=== PATIENT | female | born 1970 | race African-American/Black ===

== ENCOUNTER 2017-03-11 11:00 | Emergency (ER) | payer MEDICARE, MEDICAID ==
[~2017-03-11] VITALS: Ht 165.1 cm; Wt 60.0 kg
[~2017-03-11 11:00] MED LIST: AMLO5TAB88 PO; ASCO500C15 PO; DIAZ10TA; LISI10TA5 PO; PREG75CA; SIMV10TA6 PO
[2017-03-11 14:10] VITALS: BP 185/98
[2017-03-11] MEDS ORDERED: KETOROLAC 60MG/2ML VIAL IM ONE (15:45)
[2017-03-11] MEDS ORDERED: TRAMADOL 50MG TABLET PO ONE (15:45)
== END 2017-03-11 17:50 | disposition home or self-care (01) ==
LOC: ER 11:23
DX: M54.9 Dorsalgia, unspecified (principal); M25.511 Pain in right shoulder; M25.561 Pain in right knee; I10 Essential (primary) hypertension
CPT/HCPCS: 73030; 73560; 96372; 99284; J1885; A4565

== ENCOUNTER 2017-05-24 03:28 | Emergency (ER) | payer MEDICARE, MEDICAID ==
[~2017-05-24] VITALS: Ht 167.6 cm; Wt 59.0 kg
[2017-05-24] MEDS ORDERED: MORPHINE SULFATE 4 MG/ML CPJ (NOT FOR IM USE) IV ONE (04:00)
[2017-05-24] MEDS ORDERED: DIATR MEGLU/DIATRIZOATE SOLN 30ML ONE (04:09)
[2017-05-24 04:20] LABS: HEMATOCRIT. 39.9 % (36.0-48.0); HEMOGLOBIN. 13.4 g/dL (12.0-16.0); MEAN CORPUSCULAR HEMOGLOBIN 29.6 pg (28.0-32.0); MEAN CORPUSCULAR VOLUME 87.7 fL (81.0-99.0); MEAN PLATELET VOLUME 7.8 fl (7.4-10.4); PLATELET 240 x1000/uL (130-400); RED BLOOD CELL COUNT 4.55 mill/uL (4.2-5.4); RED CELL DISTRIBUTION WIDTH 13.9 % (11.6-14.6)
[2017-05-24 04:24] LABS: INR 1.1; PROTHROMBIN TIME 11.2 sec (9.4-11.6)
[2017-05-24 04:54] LABS: CARBON DIOXIDE 29 mEq/L (21-32); CHLORIDE 105 mEq/L (98-107); TROPONIN I < 0.02 ng/mL (0.00-0.04)
[2017-05-24 05:01] LABS: CLARITY URINE CLEAR (CLEAR); COLOR URINE YELLOW (YELLOW); KETONES URINE NEGATIVE (NEGATIVE); LEUKOCYTE ESTERASE URINE NEGATIVE (NEGATIVE); NITRITE URINE NEGATIVE (NEGATIVE); OCCULT BLOOD URINE 2+ (NEGATIVE); PROTEIN URINE NEGATIVE (NEGATIVE); SPECIFIC GRAVITY URINE 1.018 (1.005-1.030); UROBILINOGEN URINE 0.2 E.U./dL (0.2-1.0)
[2017-05-24] MEDS ORDERED: IOHEXOL-300 100 ML BOTTLE ONE (06:40)
[2017-05-24 09:20] LABS: PLATELET ESTIMATE NORMAL
[2017-05-24 14:11] VITALS: BP 144/80
== END 2017-05-24 14:18 | disposition home or self-care (01) ==
LOC: ER 03:28
DX: A08.4 Viral intestinal infection, unspecified (principal); K58.9 Irritable bowel syndrome, unspecified; Z90.710 Acquired absence of both cervix and uterus
CPT/HCPCS: 36415; 74177; 76830; 76856; 80053; 81001; 83690; 84484; 85025; 85610; 93005; 96374; 99285; J2270; Q9967; Q9963

== ENCOUNTER 2019-04-11 23:55 | Emergency (ER) | payer MEDICARE, MEDICAID ==
[~2019-04-11] VITALS: Ht 167.6 cm; Wt 60.0 kg
[2019-04-12 00:50] LABS: CLARITY URINE TURBID (CLEAR); COLOR URINE ORANGE (YELLOW); KETONES URINE NEGATIVE (NEGATIVE); LEUKOCYTE ESTERASE URINE 3+ (NEGATIVE); NITRITE URINE NEGATIVE (NEGATIVE); OCCULT BLOOD URINE 3+ (NEGATIVE); PH URINE 5.5 (4.5-8.0); PROTEIN URINE 3+ (NEGATIVE); SPECIFIC GRAVITY URINE 1.021 (1.005-1.030)
[2019-04-12 01:31] LABS: CHLORIDE 100 mEq/L (98-107)
[2019-04-12 01:35] LABS: HEMATOCRIT 40.4 % (36.0-48.0); HEMOGLOBIN 14.1 g/dL (12.0-16.0); MEAN CORPUSCULAR HEMOGLOBIN 30.7 pg (28.0-32.0); MEAN CORPUSCULAR VOLUME 87.9 fL (81.0-99.0); PLATELET 174 x1000/uL (130-400); RED CELL DISTRIBUTION WIDTH 13.7 % (11.6-14.6)
[2019-04-12] MEDS ORDERED: PHENAZOPYRIDINE HCL 100MG TABLET PO SCH (03:00)
[2019-04-12] MEDS ORDERED: KETOROLAC 60MG/2ML VIAL IM SCH (03:00)
[2019-04-12] MEDS ORDERED: CEPHALEXIN 250MG CAPSULE PO SCH (03:00)
[2019-04-12 03:19] VITALS: BP 129/91
[2019-04-12 15:34] LABS: UCG SCREEN NEGATIVE
== END 2019-04-12 03:28 | disposition home or self-care (01) ==
LOC: ER 23:55
DX: N39.0 Urinary tract infection, site not specified (principal); R31.0 Gross hematuria; I10 Essential (primary) hypertension
CPT/HCPCS: 36415; 76770; 80053; 81003; 81025; 85027; 87077; 87086; 87186; 96372; 99284; J1885

== ENCOUNTER → 2019-07-20 | Outpatient (CLI) | payer MEDICARE, MEDICAID ==
[~2019-07-20] MED LIST changes: +LIDOCAINE HCL 1% 20ML VIAL (Pyxis) INJ ONE; -SIMV10TA6 PO; +SIMV10TA97 PO; +SODIUM BICARBONATE 4% (2.4MEQ) 5ML VIAL IV ONE
== END | disposition home or self-care (01) ==
LOC: RAD 07:44
PROVIDERS: ATTEND Family Medicine Adult Medicine
DX: R59.0 Localized enlarged lymph nodes (principal); Z79.899 Other long term (current) drug therapy; Z72.89 Other problems related to lifestyle
CPT/HCPCS: 38505; 76942; 88305; J3490

== ENCOUNTER 2021-04-20 21:03 | Emergency (ER) | payer MEDICARE, MEDICAID ==
[~2021-04-20] VITALS: Ht 170.2 cm; Wt 71.0 kg
[~2021-04-20 21:03] MED LIST changes: -LIDOCAINE HCL 1% 20ML VIAL (Pyxis) INJ ONE; +LISI10TA26 PO; -LISI10TA5 PO; -SODIUM BICARBONATE 4% (2.4MEQ) 5ML VIAL IV ONE
[2021-04-21 01:34] LABS: BASOPHILS % 0.6 % (0.0-2.0); EOSINOPHILS % 0.9 % (0.0-5.0); HEMATOCRIT. 40.1 % (36.0-48.0); HEMOGLOBIN. 13.8 g/dL (12.0-16.0); LYMPHOCYTES % 20.6 % (20.0-50.0); MEAN CORPUSCULAR HEMOGLOBIN 29.9 pg (28.0-32.0); MEAN CORPUSCULAR VOLUME 87.2 fL (81.0-99.0); MEAN PLATELET VOLUME 7.7 fl (7.4-10.4); MONOCYTES % 10.1 % (2.0-8.0); NEUTROPHILS % 67.8 % (40.0-76.0); PLATELET 255 x1000/uL (130-400); RED CELL DISTRIBUTION WIDTH 13.9 % (11.6-14.6)
[2021-04-21 01:40] LABS: CHLORIDE 107 mEq/L (98-107)
[2021-04-21] MEDS ORDERED: MORPHINE SULFATE 4 MG/ML CPJ (NOT FOR IM USE) IV STA (02:00)
[2021-04-21] MEDS ORDERED: ONDANSETRON HCL 4MG/2ML INJ IV STA (02:00)
[2021-04-21 04:14] VITALS: BP 155/67
== END 2021-04-21 04:33 | disposition home or self-care (01) ==
LOC: ER 21:03
DX: M79.18 Myalgia, other site (principal); M54.50 Low back pain, unspecified; I10 Essential (primary) hypertension; Z90.710 Acquired absence of both cervix and uterus; Z98.890 Other specified postprocedural states; F12.10 Cannabis abuse, uncomplicated; Z79.899 Other long term (current) drug therapy
CPT/HCPCS: 36415; 80053; 85025; 96374; 96375; 99284; J2270; J2405

== ENCOUNTER → 2024-09-18 | Outpatient (CLI) | payer MEDICARE, OTHER ==
[~2024-09-18] MED LIST changes: +AMLO1CAP2 PO; +ASCO500C14 PO; -ASCO500C15 PO; +DIAZ-570; -DIAZ10TA; +HYDR50TA40 PO; +NITR0.4T49 SL
== END | disposition home or self-care (01) ==
LOC: CARD 08-30 12:39
PROVIDERS: ATTEND Internal Medicine
DX: I08.1 Rheumatic disorders of both mitral and tricuspid valves (principal); R00.1 Bradycardia, unspecified; R07.9 Chest pain, unspecified; Z98.890 Other specified postprocedural states
CPT/HCPCS: 93306